=== PATIENT | female | born 1965 | race Two or more races ===

== ENCOUNTER 2022-11-13 09:57 | Outpatient (CLI) | payer MEDICARE, OTHER | END 2022-11-13 23:59 | disposition home or self-care (01) | LOC: EDSEX → WOU 09:57 | PROVIDERS: ATTEND Podiatrist Foot & Ankle Surgery | DX: S92.354G Nondisplaced fracture of fifth metatarsal bone, right foot, subsequent encounter for fracture with delayed healing (principal); X58.XXXD Exposure to other specified factors, subsequent encounter; M79.672 Pain in left foot; M79.671 Pain in right foot | CPT/HCPCS: 73600; 73630 ×2; G0463 ==

== ENCOUNTER 2022-11-20 09:58 | Outpatient (CLI) | payer MEDICARE, OTHER | END 2022-11-20 23:59 | LOC: WOU 09:58 | PROVIDERS: ATTEND Podiatrist Foot & Ankle Surgery | DX: S92.354G Nondisplaced fracture of fifth metatarsal bone, right foot, subsequent encounter for fracture with delayed healing (principal); X58.XXXD Exposure to other specified factors, subsequent encounter; M79.672 Pain in left foot; M79.671 Pain in right foot | CPT/HCPCS: 73700; G0463 ==

== ENCOUNTER 2023-01-25 12:58 | Outpatient (CLI) | payer MEDICARE, OTHER ==
[~2023-01-25 12:58] MED LIST: ACET-868 PO; ALBU8.5H8 IH; BENZ2TAB7 PO; DOCU-141 PO; FERR325T23 PO; FLUT1DIS3 IH; FOLI0.4T6 PO; HALO5TAB PO; METO25TA20 PO; MONT10TA22 PO; MULT-447 PO; MYRBETRIQ PO; QUET50TA PO; SIMV-46 PO
== END 2023-01-25 23:59 ==
LOC: WOU 12:58
PROVIDERS: ATTEND Podiatrist Foot & Ankle Surgery
DX: Z47.89 Encounter for other orthopedic aftercare (principal); M79.672 Pain in left foot; M79.671 Pain in right foot; F25.9 Schizoaffective disorder, unspecified
CPT/HCPCS: G0463

== ENCOUNTER 2023-03-01 10:09 | Outpatient (CLI) | payer MEDICARE, OTHER | END 2023-03-01 23:59 | disposition home or self-care (01) | LOC: WOU 10:09 | PROVIDERS: ATTEND Podiatrist Foot & Ankle Surgery | DX: S92.354G Nondisplaced fracture of fifth metatarsal bone, right foot, subsequent encounter for fracture with delayed healing (principal); X58.XXXD Exposure to other specified factors, subsequent encounter; M79.671 Pain in right foot; M79.672 Pain in left foot | CPT/HCPCS: G0463 ==